=== PATIENT | male | born 1985 | race Two or more races ===

== ENCOUNTER 2020-03-23 07:04 | Emergency (ER) | payer MEDICAID ==
[~2020-03-23] VITALS: Ht 177.8 cm; Wt 65.8 kg
[2020-03-23 07:09] VITALS: BP 107/64
--- NOTE | 2020-03-23 07:34 | NUR ---
Patient discharged to home in stable condition. Written and verbal after care instructions given. Patient verbalizes understanding of instruction.
== END 2020-03-23 07:34 | disposition home or self-care (01) ==
LOC: ER 07:04
DX: G44.209 Tension-type headache, unspecified, not intractable (principal); Z60.2 Problems related to living alone